=== PATIENT | male | born 1990 | race Caucasian/White ===

== ENCOUNTER 2019-09-23 17:36 | Emergency (ER) | payer OTHER, SELFPAY ==
[2019-09-23 17:46] VITALS: BP 129/79; PULSE 108; RESP 14; TEMP 36.7; O2SAT 98
--- NOTE | 2019-09-23 18:17 | ED.MALEGU ---
HPI - Male Genitourinary General Chief complaint: Urogenital-Male Stated complaint: Urogenital-male Time Seen by Provider: 09/23/19 17:58 Source: patient and RN notes reviewed Mode of arrival: ambulatory Limitations: no limitations History of Present Illness HPI Narrative: Patient presents today with a 3-day history of dysuria, Malodorous, yellow purulent discharge. States he did have bloody discharge initially. Denies hematuria. Denies abdominal pain, back pain, fever. Patient has unprotected intercourse with multiple partners.He was positive for gonorrhea in November 2018, and positive for gonorrhea and chlamydia in July 2018.No treatment prior to arrival.Denies penile pain,Testicular pain, scrotal pain or swelling, genital lesions. MD Complaint: penile discharge Related Data Allergies Allergy/AdvReac Type Severity Reaction Status Date / Time No Known Allergies Allergy Unknown Verified 09/23/19 17:58 Review of Systems Review of Systems: Narrative: CONSTITUTIONAL: Denies body aches, fever, chills, or sweats. EYES: Denies visual changes, redness, or discharge. ENT: Denies rhinorrhea, congestion, sore throat, or otalgia. CARDIOVASCULAR: Denies chest pain, palpitations, or edema. RESPIRATORY: Denies cough or dyspnea. GASTROINTESTINAL: Denies abdominal pain, nausea, vomiting, or diarrhea. GENITOURINARY:+Dysuria, penile discharge SKIN: Denies rash, itching, or wounds. MUSCULOSKELETAL: Denies back pain, joint pain, or myalgia. NEUROLOGIC: Denies headache, numbness, tingling, or weakness. PSYCH: Denies depression or anxiety. PMFSH Comments At time of signature, I have reviewed and agree with nursing past medical, surgical, social and family history unless otherwise noted. Please see nursing chart for further information. There is no relevant family history pertinent to the presenting complaint Exam Narrative: Exam Narrative: GENERAL: Well-appearing, well-nourished, and in no acute distress. HEAD: Normocephalic, atraumatic. EYES: EOMI. No redness or drainage. Conjunctivae normal. ENT: Mucous membranes pink and moist. NECK: Normal AROM. CHEST: No respiratory distress. ABDOMEN: Soft, nontender, nondistended, normal active bowel sounds. :Accompanied during exam by FERMIN Gould. No penile swelling or tenderness.Patient has a copious amount of yellow purulent penile discharge. No lesions noted. No tenderness to the scrotum or testicles. MUSCULOSKELETAL: No bony tenderness. EXTREMITIES: Normal range of motion. No edema. SKIN: Warm, dry, no rash. Capillary refill normal. Normal skin turgor. NEURO: No focal deficits. Alert and oriented x3. Gait steady. PSYCH: Normal affect. No signs of depression or anxiety. Course Vital Signs Vital signs: Vital Signs Temperature 98.1 F 09/23/19 17:46 Pulse Rate 108 H 09/23/19 17:46 Respiratory Rate 14 09/23/19 17:46 Blood Pressure 129/79 09/23/19 17:46 Pulse Oximetry 98 09/23/19 17:46 Temperature 98.1 F 09/23/19 17:46 Pulse Rate 108 H 09/23/19 17:46 Respiratory Rate 14 09/23/19 17:46 Blood Pressure 129/79 09/23/19 17:46 Pulse Oximetry 98 09/23/19 17:46 Reviewed. Pt has been instructed to follow up with his PCP regarding his elevated blood pressure today. MDM - Male Genitourinary Differential Diagnosis Differential diagnosis: Likely urinary tract infection, urethritis, epididymitis and other (Gonorrhea, chlamydia, trichomonas) Lab Data Labs: Urine Glucose Negative Reference Range: Negative Urine Bilirubin Negative Reference Range: Negative Urine Ketone Negative Reference Range: Negative Urine Specific [place] 1.030 Reference Range:1.001-1.035 Urine Blood Trace Reference Range: Negative * * Urine pH 5.5 Reference Range: 5.0-9.0 Urine Protein
[2019-09-23] MEDS: LIDOCAINE HCL 1% LOCAL INJ 20 ML VIAL IM (18:29)
[2019-09-23] MEDS: AZITHROMYCIN 250 MG TABLET 1000 MG PO (18:30)
[2019-09-23] MEDS: cefTRIAXone 250 MG VIAL IM (18:30)
== END 2019-09-23 18:50 | disposition home or self-care (01) ==
PROVIDERS: Emergency Provider Nurse Practitioner
DX: Z20.2 Contact with and (suspected) exposure to infections with a predominantly sexual mode of transmission (principal)
CPT/HCPCS: 81003; 87491; 87591; 87661; 96372; 99213; A9270; G0463; J0696

== ENCOUNTER 2020-04-18 19:41 | Emergency (ER) | payer SELFPAY ==
[2020-04-18 19:50] VITALS: BP 129/64; PULSE 93; RESP 14; TEMP 36.5; O2SAT 100
--- NOTE | 2020-04-18 19:56 | ED.GENADULT ---
HPI - General Adult General Chief complaint: Urogenital-Male Stated complaint: bloody discharge Time Seen by Provider: 04/18/20 19:57 Source: patient Mode of arrival: ambulatory Limitations: no limitations History of Present Illness HPI narrative: 30-year-old male patient presents to the [facility] with complaints of green/yellow and bloody penile discharge x4 days. Patient denies any fevers, body aches or chills. Denies any abdominal pain. Denies any low back pain. Patient states he has had some pain with urination. Patient states he has not had a new partner but states he does have unprotected sex. Patient states he was seen here about 6 to 7 months ago and also tested for STDs in which time he did come up positive for STDs. Patient states he has the same partner that he did when he came up positive the last time. Related Data Allergies Allergy/AdvReac Type Severity Reaction Status Date / Time No Known Allergies Allergy Unknown Verified 09/23/19 17:58 Review of Systems Review of Systems: Narrative: CONSTITUTIONAL: Denies fever, chills, or sweats. EYES: Denies visual changes, redness, or discharge. ENT: Denies rhinorrhea, congestion, sore throat, or otalgia. CARDIOVASCULAR: Denies chest pain, palpitations, or edema. RESPIRATORY: Denies cough or dyspnea. GASTROINTESTINAL: Denies abdominal pain, nausea, vomiting, or diarrhea. GENITOURINARY: Positive dysuria or hematuria. Positive penile discharge x4 days SKIN: Denies rash or itching. MUSCULOSKELETAL: Denies back pain, joint pain, or myalgia. NEUROLOGIC: Denies headache, numbness, or weakness. PSYCHIATRIC: Denies anxiety or depression. PMFSH Comments At the time of my signature I agree with nursing past medical history, surgical, social, and family history. There is no relevant family history pertinent to the presenting complaint. Exam Narrative: Exam Narrative: GENERAL: Well-appearing, well-nourished, and in no acute distress. HEAD: Normocephalic, atraumatic. EYES: PERRLA and EOMI. ENT: Nares clear, no rhinorrhea or epistaxis. Mucous membranes moist. NECK: Supple. No lymphadenopathy CHEST: Clear to auscultation. No respiratory distress. HEART: Regular rate and rhythm. No murmur heard. Normal peripheral pulses. ABDOMEN: Soft, nontender, nondistended, normal active bowel sounds. No CVA tenderness EXTREMITIES: Normal range of motion. No edema. SKIN: Warm, dry, no rash. NEURO: No focal deficits. Alert and oriented x3. Course Vital Signs Vital signs: Vital Signs Temperature 36.5 C 04/18/20 19:50 Pulse Rate 93 04/18/20 19:50 Respiratory Rate 14 04/18/20 19:50 Blood Pressure 129/64 04/18/20 19:50 Pulse Oximetry 100 04/18/20 19:50 Temperature 36.5 C 04/18/20 19:50 Pulse Rate 93 04/18/20 19:50 Respiratory Rate 04/18/20 19:50 Blood Pressure 129/64 04/18/20 19:50 Pulse Oximetry 100 04/18/20 19:50 Vital signs reviewed Medical Decision Making Differential Diagnosis Differential Diagnosis: Differential diagnosis: Uncomplicated lower UTI, uncomplicated UTI, polynephritis, penile trauma,balanoposthitis, phimosis, paraphimosis, testicular torsion, epididymitis, prostatitis, varicocele, spermatocele, hydrocele, hernia. Gonorrhea, chlamydia, Trichomonas, bacterial vaginosis, herpes, HIV, yeast infection, urinary tract infection. Discussed with patient that we will go ahead and test him again for STDs today. Discussed with him that we only test for a few STDs here however I do think that he needs to get a full panel of testing that includes HIV, syphilis and herpes which she can get done at the [facility]. Discussed with patient that we will go ahead and treat him today since he is symptomatic however it is very important that either him and his partner both get treated appropriately or they also need to be using protection. Discussed with him that this is now his second time in a year being treated for STDs and therefore I think it i
--- NOTE | 2020-04-18 20:11 | PC.NURSE ---
NO CULTURE PER PROVIDER.
[2020-04-18] MEDS: cefTRIAXone 250 MG VIAL 500 MG IM (20:16)
[2020-04-18] MEDS: LIDOCAINE HCL 1% LOCAL INJ 20 ML VIAL IM (20:16)
== END 2020-04-18 20:31 | disposition home or self-care (01) ==
PROVIDERS: Emergency Provider Nurse Practitioner Family
DX: Z20.2 Contact with and (suspected) exposure to infections with a predominantly sexual mode of transmission (principal)
CPT/HCPCS: 81003; 87491; 87591; 87661; 96372; 99213; G0463; J0696

== ENCOUNTER 2024-08-11 14:17 | Emergency (ER) | payer SELFPAY ==
[2024-08-11 14:17] VITALS: BP 153/100; PULSE 88; RESP 18; TEMP 36.4; O2SAT 95
--- OUTSIDE RECORDS SUMMARY | 2024-08-11 14:29 | XMS_ITS | Clinical Summary ---
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 Gender Identity Not on file Sexual Orientation Not on file Plan of Treatment Health Maintenance Due Date Last Done Comments Annual Physical 1993 Hepatitis C 2008 DTaP, Tdap and Td Vaccines ( 1 - Tdap) 2009 Hepatitis B Vaccines (1 of 3 - 19+ 3-dose series) 2009 COVID-19 Vaccine (2023-2 5 season) 2023 HPV Vaccines Aged Out No longer eligi ble based on patient's age to complete this topic Meningococcal B Vaccine Aged Out No l onger eligible based on patient's age to complete this topic Meningococcal Vaccine Aged Out No karen tim eligible based on patient's age to complete this topic Pneumococcal Vaccine: Pediat rics (0 to 5 Years) and At-Risk Patients (6 to 49 Years) Aged Out No longer eligible b ased on patient's age to complete this topic RSV Immunizations Under 20 Months Aged Out No longer eligible based on patient's age to complete this topic
--- OUTSIDE RECORDS SUMMARY | 2024-08-11 14:56 | XMS_ITS | Clinical Summary ---
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
[2024-08-11 15:07] LABS: Add Urine Microscopic? YES; Glucose Urine UA Negative (Negative); Leukocyte Esterase Ur Negative LEU/UL (Negative); Nitrate Urine Negative (Negative); Specific Grav Ur >= 1.030 (1.010-1.020)
[2024-08-11 15:09] LABS: Appearance Urine Sl Cloudy (Clear)
--- NOTE | 2024-08-11 15:15 | ED.MALEGU ---
HPI - Male Genitourinary General Chief complaint: Urogenital-Male Stated complaint: STI check Time Seen by Provider: 08/11/24 14:31 Source: patient Mode of arrival: ambulatory Limitations: no limitations History of Present Illness HPI Narrative: A 34-year-old male that with no symptoms but is concerned of STD because his girlfriend had recently diagnosed with some STD. There is no fever chills no discharge there is no dysuria no hematuria no flank pain. Related Data Allergies Allergy/AdvReac Type Severity Reaction Status Date / Time No Known Allergies Allergy Unknown Verified 08/11/24 14:59 Review of Systems Review of Systems: All systems reviewed & are unremarkable except as noted in HPI and below PMFSH Past Medical History Medical History Patient denies medical problems Exam Const: General: healthy appearing and no acute distress Nutritional Appearance: well nourished Limitations: no limitations HENMT: Head: normal to inspection Eyes: Conjunctivae: conjunctivae normal Neck: Neck: normal visual inspection, no lymphadenopathy and no meningeal signs Chest: Chest palpation & inspection: normal inspection of the chest Resp: Effort & Inspection: normal respiratory effort Auscultation: clear to auscultation bilaterally Cardio: Rate: regular rate Rhythm: regular rhythm GI: GI Palp: Yes Soft to palpation Auscultation: normal bowel sounds : General: Yes bladder normal to palpation Back/Spine/Pelvis: Back: no CVA tenderness Course Course Emergency Course: patient asymptomatic and wanted STD checkup did start him on 1g IM ceftriaxone and S and azithromycin 1g p.o. and blood work for HIV and RPR urine GC was sent to the lab. Vital Signs Vital signs: Vital Signs Temperature 36.4 C 08/11/24 14:17 Pulse Rate 88 08/11/24 14:17 Respiratory Rate 18 08/11/24 14:17 Blood Pressure 153/100 H 08/11/24 14:17 Pulse Oximetry 95 08/11/24 14:17 Oxygen Delivery Room Air 08/11/24 14:17 Temperature 36.4 C 08/11/24 14:17 Pulse Rate 88 08/11/24 14:17 Respiratory Rate 18 08/11/24 14:17 Blood Pressure 153/100 H 08/11/24 14:17 Pulse Oximetry 95 08/11/24 14:17 Oxygen Delivery Room Air 08/11/24 14:17 MDM - Male Genitourinary Lab Data Labs: Lab Results 08/11/24 Range/Units 14:50 Urine Color Yellow (Yellow) Urine Appearance Sl cloudy A (Clear) Urine pH 6.0 (5.0-8.0) Ur Specific [place] >= 1.030 H (1.010-1.020) Urine Protein 1+ H (Negative) Urine Glucose (UA) Negative (Negative) Urine Ketones Negative (Negative) Ur Blood (Man) Negative (Negative) Urine Nitrate Negative (Negative) Urine Bilirubin Negative (Negative) Urine Urobilinogen 0.2 (0.2-1.0) mg/dL Leukocyte Esterase Rfl Negative (Negative) AMINA/UL C. trachomatis (PCR) Pending N. gonorrhoeae (PCR) Pending Critical Care Time Critical Care Time Critical Care Time: No Discharge Plan Discharge Clinical Impression: Concern about STD in female without diagnosis Patient Disposition: Home Condition: Stable Instructions: Antibiotic Form, Sexually Transmitted Diseases (ED), Safe Sex Practices for Adolescents (ED) Additional Instructions: advised patient follow with primary care physician within 1 week for further evaluation and treatment. Patient Language: Divehi Prescriptions: No Action doxycycline hyclate 100 mg capsule 100 mg PO BID 7 Days Qty: 14 0RF metronidazole [Flagyl] 500 mg tablet 2,000 mg PO ONCE Qty: 4 0RF Follow-up/Referrals: Rasta Garza MD [Primary Care Provider] - Time of Disposition: 15:19
[2024-08-11] MEDS: AZITHROMYCIN 250 MG TABLET 1000 MG PO (15:21)
[2024-08-11] MEDS: cefTRIAXone 1 GM, LIDOCAINE 1% LOCAL INJ 2.1 ML IM (15:22)
[2024-08-11 15:35] LABS: Other Sediment Urine Spermatazoa /hpf
[2024-08-11 15:51] LABS: HIV 1 P24 AG Negative (Negative); HIV 1/2 AB Negative (Negative)
== END 2024-08-11 15:35 | disposition home or self-care (01) ==
PROVIDERS: Emergency Provider Emergency Medicine; PCP Family Medicine
DX: Z11.3 Encounter for screening for infections with a predominantly sexual mode of transmission (principal)
CPT/HCPCS: 36415; 81001; 86592; 87491; 87591; 87806; 96372; 99283; A9270; J0696; J2003